=== PATIENT | male | born 1980 | race Caucasian/White ===

== ENCOUNTER → 2021-06-09 11:10 | Outpatient (REF) | payer OTHER, SELFPAY | LOC: ANHLAB 11:10 | PROVIDERS: PCP Family Medicine; Visit Provider Nurse Practitioner | DX: L72.0 Epidermal cyst (principal) | CPT/HCPCS: 88304 ==

== ENCOUNTER 2022-06-07 09:53 | Outpatient (CLI) | payer OTHER, SELFPAY ==
[2022-06-07 19:58] LABS: Alanine Aminotransferase 38 U/L (6-50); Albumin Level 4.5 g/dL (3.5-5.1); Alkaline Phosphatase 67 U/L (38-126); Anion Gap 6 mmol/L (8-16); Aspartate Amino Transferase 52 U/L (17-59); Bilirubin,Total 1.1 mg/dL (0.2-1.3); Blood Urea Nitrogen 16 mg/dL (9-20); Carbon Dioxide 28 mmol/L (22-30); Chloride 103 mmol/L (98-107); Cholesterol 198 mg/dL (0-200); Estimated Glomerular Filt Rate > 60; Glucose 109 mg/dL (65-110); HDL Direct 40 mg/dL; Potassium 4.2 mmol/L (3.4-5.0); Sodium 137 mmol/L (137-145); Triglycerides 192 mg/dL (<150)
[2022-06-07 20:08] LABS: Basophils Absolute Auto 0.1 K/mm3 (0.0-0.1); Basophils Percent Auto 0.9 % (0.2-1.2); Eosinophils Absolute Auto 0.1 K/mm3 (0-0.3); Eosinophils Percent Auto 1.8 % (0-4.4); Hematocrit 44.1 % (42.0-52.0); Hemoglobin 15.2 g/dL (14.0-18.0); Immature Granulocyte Absolute 0.01 K/mm3 (0.00-0.031); Immature Granulocyte Percent A 0.2 % (0-0.5); Lymphocytes Absolute Auto 2.31 K/mm3 (0.9-3.2); Lymphocytes Percent Auto 41.1 % (18.3-44.2); Mean Corpuscular HGB Conc 34.5 g/dl (32-36); Mean Corpuscular Hemoglobin 29.3 pg (26-34); Mean Corpuscular Volume 85.1 fl (80-100); Mean Platelet Volume 9.2 fl (7.4-10.4); Monocytes Absolute Auto 0.4 K/mm3 (0.1-0.6); Monocytes Percent Auto 7.8 % (2.6-8.5); Neutrophils Absolute Auto 2.7 K/mm3 (1.3-6.7); Neutrophils Percent Auto 48.2 % (45.5-73.1); Platelet Count Result 248 k/mm3 (150-375); Red Blood Count 5.18 M/mm3 (4.6-6.20); White Blood Count 5.6 K/mm3 (4.5-10.0)
[2022-06-07 20:09] LABS: LDL Cholesterol Direct 120 mg/dL
[2022-06-07 20:53] LABS: Hemoglobin A1C 5.5 % (<5.7)
== END 2022-06-07 09:54 | disposition home or self-care (01) ==
LOC: ANHGOSHLAB 09:54
PROVIDERS: PCP Family Medicine; Visit Provider Family Medicine
DX: E78.5 Hyperlipidemia, unspecified (principal); Z13.228 Encounter for screening for other metabolic disorders; R73.03 Prediabetes; R53.83 Other fatigue; R06.09 Other forms of dyspnea
CPT/HCPCS: 36415; 80053; 80061; 83036; 85025

== ENCOUNTER 2022-09-12 07:57 | Outpatient (CLI) | payer OTHER, SELFPAY ==
--- NOTE | 2022-10-04 19:01 | WPDSLEEPSTUD ---
Sleep Study Date of Study: 09/12/22 Ordering Provider: Guy Vicente DO Interpreting Physician: Helen Larose MD Sleep Study Type: Polysomnogram Height: 1.88 m Weight: 106.594 kg Body Mass Index: 30.2 Neck Circumference (inches): 19.75 [place]: 13 Reason for Sleep Study Hypersomnolence Sleep History Yuriy Quarles is a 41-year-old man with feelings of persistently being tired all day. This is been going on for years. He has a family history of sleep issues, both his mother and sister use CPAP. They suspect his older brother is narcoleptic. He reports having hypertension and depression as well as nasal allergies and acid reflux. He rarely awakens from sleep feeling short of breath. He occasionally awakens at night with heartburn, belching or coughing. He always snores loudly enough that others complain about it. He always has trouble sleeping if he has a cold. He rarely wakes up gasping for breath at night. He frequently has breathing problems at night observed by others. He occasionally sweats excessively at night. He occasionally notices his heart pounding or beating irregularly at night. Occasionally falls asleep during the day, rarely falls asleep involuntarily, never falls asleep while driving. He rarely has loss of muscle tone with strong emotion. He always has daytime difficulties due to being excessively sleepy. He has a sanitation labor. He rarely feels paralyzed on waking or falling asleep. He occasionally has vivid dreamlike scenes on waking or falling asleep. He rarely feels afraid to go to sleep. He rarely has nightmares. He rarely remembers his dreams. He frequently has racing thoughts. Frequently feels sad, depressed, and anxious. He frequently has muscular tension. He occasionally notices parts of his body jerking. He occasionally kicks at night. He occasionally has crawling and aching feelings in his legs. He occasionally has leg pain during the night. He rarely has morning jaw pain. He rarely grinds his teeth during sleep. He frequently is bothered by pain during the day. He rarely is awakened by pain at night. He frequently wakes up feeling stiff in the morning with sore achy muscles or pain in the neck and spine. He has fatigue, memory problems, concentration difficulties and depression. His normal bedtime is 10:00 p.m., sometimes falling asleep more quickly than other times. He always wakes at least once before his alarm goes off. When he wakes at night he goes to the bathroom. After this he repositioned and tries to return to sleep. He does not like to be out later than 6:00 p.m. because he is so tired and wants to be at home resting or possibly sleeping. He takes naps in the afternoon or evening. A short nap lasting 10 or 15 minutes might be refreshing. He is usually drowsy for 2 hours after waking. Habits: Never smoked tobacco. Caffeine 2 cups per day. Alcohol less than 1 average per day. No recreational substances. [facility] Past Medical History Medical History Acute nasopharyngitis Body mass index [BMI] 38.0-38.9, adult Encounter for screening for other metabolic disorders Excessive sweating Obesity (BMI 35.0-39.9 without comorbidity) Other and unspecified hyperlipidemia Screening, lipid Sebaceous cyst Family History Family History Father Malignant neoplasm of prostate Diabetes mellitus Hypertension Heart disease Mother Hypertension Diabetes mellitus Sibling Hypertension Grandparent Diabetes mellitus Grandparent Depression Anxiety Social History Social History Smoking status: Never smoker Second hand tobacco smoke exposure: No Alcohol intake: current Alcohol use details: 1 drink a month Substance use: never Lack of Transportation: No Lack of Food: Never True Current Housing: I
[2022-10-04 20:00] VITALS: BMI 30.2
== END 2022-09-13 05:28 | disposition home or self-care (01) ==
LOC: ANHCSM 07:58
PROVIDERS: PCP Family Medicine; Visit Provider Family Medicine
DX: R53.83 Other fatigue (principal); G47.33 Obstructive sleep apnea (adult) (pediatric)
CPT/HCPCS: 95810

== ENCOUNTER 2023-09-17 08:43 | Outpatient (CLI) | payer OTHER, SELFPAY ==
[2023-09-17 09:22] LABS: Alanine Aminotransferase 22 U/L (6-50); Albumin Level 4.9 g/dL (3.5-5.1); Alkaline Phosphatase 58 U/L (38-126); Anion Gap 9 mmol/L (4-12); Aspartate Amino Transferase 28 U/L (17-59); Bilirubin,Total 1.9 mg/dL (0.2-1.3); Blood Urea Nitrogen 19 mg/dL (9-20); Calcium 9.8 mg/dL (8.4-10.2); Carbon Dioxide 25 mmol/L (22-30); Chloride 107 mmol/L (98-107); Cholesterol 189 mg/dL (0-200); Estimated Glomerular Filt Rate > 60; Glucose 115 mg/dL (65-110); HDL Direct 42 mg/dL; Potassium 4.2 mmol/L (3.4-5.0); Sodium 141 mmol/L (137-145); Triglycerides 257 mg/dL (<150)
[2023-09-17 09:33] LABS: LDL Cholesterol Direct 112 mg/dL
== END 2023-09-17 08:44 | disposition home or self-care (01) ==
LOC: ANHLAB 08:44
PROVIDERS: PCP Family Medicine; Visit Provider Family Medicine
DX: E78.5 Hyperlipidemia, unspecified (principal); Z13.228 Encounter for screening for other metabolic disorders
CPT/HCPCS: 36415; 80053; 80061

== ENCOUNTER 2024-09-03 07:02 | Emergency (ER) | payer OTHER, SELFPAY ==
--- NOTE | ~2024-09-03 | CT_ITS ---
CLINICAL INDICATION: Left flank pain COMPARISON: None. TECHNIQUE: Multiple contiguous axial images of the abdomen and pelvis were performed without the admi nistration of intravenous contrast The dose-length product (DLP) was 1621.71 mGy-cm. Automated exposure control and iterative reconstruction technique were employed. FINDINGS/OBSERVATIONS: Visualized lower thorax: The bilateral lung bases are clear. The heart is of normal size, without pericardial effusion. Small hiatal hernia is present. Liver: The liver demonstrates homogeneous attenuation and is enlarged measuring 24 cm in longitudinal dimens ion. Gallbladder and biliary system: The gallbladder is only minimally distended, and otherwise unremarkable. Pancreas: Limited evaluation of the pancreas secondary to the lack of intravenous contrast. Spleen: Punctate calcifications identified within the splenic parenchyma, suggesting prior granulomat ous disease. The remainder of the spleen demonstrates an otherwise homogeneous attenuation and is borderline enlar ged measuring 12 cm in longitudinal dimension. Kidneys: Left-sided hydroureteronephrosis extending to the proximal left ureter where a 5 mm calculus is ident ified. Significant surrounding inflammatory change is present with global enlargement of the left kid anahi. Adrenal glands: Unremarkable. Gastrointestinal tract: Colonic diverticulosis without surrounding inflammatory change. Fecal stasis within the colon. Appendix: The air-filled appendix is of normal caliber (axial series, images 154 through 166) Vasculature: Unremarkable. Lymph nodes: No pathologically enlarged or morphologically suspicious lymph nodes within the retroperitoneum or at the root of the mesentery. Pelvic structures: The bladder is only minimally distended, and otherwise unremarkable. The prostate gland is not enlarged. Body wall and musculoskeletal: Small fat-containing umbilical hernia. No significant degenerative disease within the lumbosacral spine. IMPRESSION: Left-sided hydroureteronephrosis secondary to a 5 mm calculus proximal left ureter. Hepatomegaly. Borderline splenomegaly. Reviewed, dictated and finalized at location A. IMPRESSION: Left-sided hydroureteronephrosis secondary to a 5 mm calculus proximal left ure ter. Hepatomegaly. Borderline splenomegaly.
[2024-09-03 07:02] VITALS: BP 119/73; PULSE 88; RESP 16; TEMP 36.4; O2SAT 94
--- OUTSIDE RECORDS SUMMARY | 2024-09-03 07:04 | XMS_ITS | Clinical Summary ---
Author Organization [facility] [address] [facility] lto Address [address] [place] [address] Care Team Providers Care Photovoltaic Subcontractor Name Role Phone EricGuy carter Primary Care Provider [phone] Allergies No known active allergies Medications atorvastatin (LIPITOR) 10 mg tablet 02/04/2023 Active omeprazole (PriLOSEC) 20 mg capsule Take 1 capsule (20 mg total) by mouth daily 01/31/2023 Active px-7-qth-epa-fi sh oil-vit D3 300-1,000-1,000 mg-mg-unit capsule Take 1,000 mg by mouth 2 (two) times a day Active Active Problems No known active problems Social History Tobacco Use Types Packs/Day Years Used Date Smoking Tobacco: Never Assessed Sex and Gender Information Value Date Recorded Sex Assigned at Not on file Legal Sex Male 8:07 AM CDT Gender Identity Not on file Sexual Orientation Not on file Obstetrics History Last Filed Vital Signs Vital Sign Reading Time Taken Comments Blood Pressure 142/82 02/08/2023 8:30 AM CDT Pulse 73 02/08/2023 8:30 AM CDT Temperature 36.5 C (97.7 F) 02/08/2023 8:30 AM CDT Respiratory Rate 18 02/08/2023 8:30 AM CDT Oxygen Saturation 98% 02/08/2023 8:30 AM CDT Inhaled Oxygen Concentration - - Weight 144.2 kg (317 lb 12.8 oz) 02/08/2023 8:30 AM CDT Height 188 cm (6' 2 ) 02/08/2023 8:30 AM CDT Body Mass Index 40.8 02/08/2023 8:30 AM CDT Plan of Treatment Health Maintenance Due Date Last Done Comments Depression Screening 1981 Hepatitis C Screening 1981 DTaP/Tdap/Td Vaccine (1 - Tdap) 1992 Varicella Vaccines (1 of 2 - 13+ 2-dose series) 1994 Hepatitis B Screening 11/04/1999 Regular Well Visit/Exam 18-64 11/04/1999 Covid-19 Vaccine (4 - 2023-2 5 season) 2024 12/08/2021, 10/03/2020, 09/10/2020 Influenza Vaccine (#1) 2024 06/07/2022 HPV Vaccines Aged Out No longer eligi ble based on patient's age to complete this topic Pneumococcal vaccine <65 Aged Out No longer eligible based on patient's age to complete this topic Insurance [facility] [id number] Care Teams Photovoltaic Subcontractor Relationship Specialty Start Date End Date Guy Vicente DO [address] [place] [address] PCP - General Family Medicine 02/08/23
--- OUTSIDE RECORDS SUMMARY | 2024-09-03 07:04 | XMS_ITS | Referral Summary ---
Author Organization [facility] 163 [facility] lto Address [address] [address] Care Team Providers Care Visual Education Teacher Name Role Phone EricGuy carter Primary Care Provider [phone] Allergies No known active allergies Medications atorvastatin (LIPITOR) 10 mg tablet 02/04/2023 Active omeprazole (PriLOSEC) 20 mg capsule Take 1 capsule (20 mg total) by mouth daily 01/31/2023 Active lh-7-yom-epa-fi sh oil-vit D3 300-1,000-1,000 mg-mg-unit capsule Take [...] on file Sexual Orientation Not on file Last Filed Vital Signs Vital Sign Reading [...] 02/08/2023 8:30 AM CDT Plan of Treatment Not on file Insurance [facility] [id number] Care Teams Visual Education Teacher Relationship Specialty Start Date End Date Guy Vicente DO [address] [place] [address] [place] [id number] PCP - General Family Medicine 02/08/23
[2024-09-03 07:29] LABS: Basophils Percent Auto 0.2 % (0.2-1.2); Eosinophils Percent Auto 0.1 % (0-4.4); Hematocrit 44.9 % (42.0-52.0); Hemoglobin 15.7 g/dL (14.0-18.0); Immature Granulocyte Absolute 0.05 K/mm3 (0.00-0.031); Immature Granulocyte Percent A 0.4 % (0-0.5); Lymphocytes Absolute Auto 1.73 K/mm3 (0.9-3.2); Lymphocytes Percent Auto 13.4 % (18.3-44.2); Mean Corpuscular Hemoglobin 29.1 pg (26-34); Mean Corpuscular Volume 83.3 fl (80-100); Mean Platelet Volume 8.7 fl (7.4-10.4); Monocytes Absolute Auto 1.1 K/mm3 (0.1-0.6); Monocytes Percent Auto 8.3 % (2.6-8.5); Neutrophils Percent Auto 77.6 % (45.5-73.1); Platelet Count Result 213 k/mm3 (150-375); Red Blood Count 5.39 M/mm3 (4.6-6.20); Red Cell Distribution Width 12.8 % (11.5-14.5); White Blood Count 12.9 K/mm3 (4.5-10.0)
[2024-09-03 07:39] LABS: Add Urine Microscopic? YES; Appearance Urine Clear (Clear); Bacteria Urine None Seen /hpf; Bilirubin Urine Negative (Negative); Blood Urine Trace (Negative); Color Urine Yellow (Yellow); Glucose Urine UA Negative (Negative); Ketones Urine Negative (Negative); Leukocyte Esterase Ur Negative LEU/UL (Negative); Nitrate Urine Negative (Negative); Non Pathogenic Casts 0-2; Protein Urine Negative (Negative); RBC Urine 0-2 /hpf (0-2); Squamous Epithelial Cell Urine None Seen /hpf (Few); Urobilinogen Urine 0.2 mg/dL (<2.0); WBC Urine 0-5 /hpf (0-3); pH Urine 5.5 (5.0-9.0)
[2024-09-03 07:45] LABS: Alanine Aminotransferase 32 U/L (6-50); Albumin Level 4.9 g/dL (3.5-5.1); Alkaline Phosphatase 61 U/L (38-126); Anion Gap 11 mmol/L (4-12); Aspartate Amino Transferase 34 U/L (17-59); Bilirubin,Total 3.1 mg/dL (0.2-1.3); Blood Urea Nitrogen 19 mg/dL (9-20); Calcium 9.4 mg/dL (8.4-10.2); Carbon Dioxide 28 mmol/L (22-30); Chloride 99 mmol/L (98-107); Estimated CRCL calculation 86 ml/min; Estimated Glomerular Filt Rate 49; Glucose 126 mg/dL (65-110); Lipase 37 U/L (23-300); Potassium 3.9 mmol/L (3.4-5.0); Sodium 138 mmol/L (137-145)
[2024-09-03] MEDS: ONDANSETRON INJ 4 MG/2 ML VIAL IV PUSH (08:16)
[2024-09-03] MEDS: SODIUM CHLORIDE 0.9% IV 1,000 ML 999 ML IV CONT (08:17)
[2024-09-03 08:42] VITALS: BP 132/84; PULSE 84; RESP 18; O2SAT 96
[2024-09-03 09:26] VITALS: BP 134/77; PULSE 79; RESP 17; O2SAT 99
--- NOTE | 2024-09-03 09:49 | ED_ITS ---
HPI - General Adult General Chief complaint: Abdominal Pain Stated complaint: left flank pain Time Seen by Provider: 09/03/24 07:46 History of Present Illness HPI narrative: This is a 43-year-old male presenting ED chief complaint left flank pain. Symptoms started yesterday. They come and go ranging from severe to no pain at all. Related Data Allergies Allergy/AdvReac Type Severity Reaction Status Date / Time No Known Allergies Allergy Verified 09/03/24 07:11 [facility] Past Medical History Medical History Acute nasopharyngitis Body mass index [BMI] 38.0-38.9, adult Encounter for screening for other metabolic disorders Excessive sweating Obesity (BMI 35.0-39.9 without comorbidity) Other and unspecified hyperlipidemia Screening, lipid Sebaceous cyst Family History Family History Father Malignant neoplasm of prostate Diabetes mellitus Hypertension Heart disease Mother Hypertension Diabetes mellitus Sibling Hypertension Grandparent Diabetes mellitus Grandparent Depression Anxiety Social History Social History Smoking status: Never smoker Second hand tobacco smoke exposure: No Alcohol intake: current Alcohol use details: 1 drink a month Substance use: never Lack of Transportation: No Lack of Food: Never True Current Housing: I Have Housing Concerned About Future Housing: No Difficulty Paying Gas/Electric Bills: No Difficulty Paying for Meds: No Currently Unemployed: No Education: Associate Degree Difficulty w/ Childcare or Family Care: No Living arrangements: with family Occupation/Education: occupation 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 Head: atraumatic. EYES: EOMI, NOSE: Atraumatic NECK: Trachea midline RESPIRATORY: No increased rate of breathing clear to auscultation CARDIOVASCULAR: RRR, no peripheral edema ABDOMINAL: Non-distended soft nontender rebound no CVA tenderness MUSCULOSKELETAl: No obvious deformities NEURO: Alert. Moving 4/4 extremities SKIN:: Warm, dry. Normal color PSYCHIATRIC: Normal affect Course Vital Signs Vital signs: Vital Signs Temperature 97.6 F 09/03/24 07:02 Pulse Rate 88 09/03/24 07:02 Respiratory Rate 16 09/03/24 07:02 Blood Pressure 119/73 09/03/24 07:02 Pulse Oximetry 94 09/03/24 07:02 Oxygen Delivery Room Air 09/03/24 07:02 Temperature 97.6 F 09/03/24 07:02 Pulse Rate 79 09/03/24 09:26 Respiratory Rate 17 09/03/24 09:26 Blood Pressure 134/77 09/03/24 09:26 Pulse Oximetry 99 09/03/24 09:26 Oxygen Delivery Room Air 09/03/24 07:02 Medical Decision Making MDM Narrative Medical decision making narrative: -Course: 43-year-old male presenting with left-sided flank pain nausea and vomiting. Found have a 5 mm stone. No evidence of infection. Patient's pain was actually controlled without pain medication in the ED. Be discharged on appropriate medications and given Urology follow-up. -DDX includes but is not limited to: Kidney stone, gastroenteritis, colitis, muscle strain Vital Signs Vital Signs: Vital Signs Temperature 97.6 F 09/03/24 07:02 Pulse Rate 88 09/03/24 07:02 Respiratory Rate 16 09/03/24 07:02 Blood Pressure 119/73 09/03/24 07:02 Pulse Oximetry 94 09/03/24 07:02 Oxygen Delivery Room Air 09/03/24 07:02 Temperature 97.6 F 09/03/24 07:02 Pulse Rate 79 09/03/24 09:26 Respiratory Rate 17 09/03/24 09:26 Blood Pressure 134/77 09/03/24 09:26 Pulse Oximetry 99 09/03/24 09:26 Oxygen Delivery Room Air 09/03/24 07:02 Lab Data 09/03/24 07:19 09/03/24 07:19 Labs: Lab Results 09/03/24 Range/Units 07:19 WBC 12.9 H (4.5-10.0) K/mm3 RBC 5.39 (4.6-6.20) M/mm3 Hgb 15.7 (14.0-18.0) g/dL Hct 44.9 (42.0-52.0) % MCV 83.3 (80-100) fl MCH 29.1 (26-34) pg MCHC 35.0 (32-36) g/dl RDW 12.8 (11.5-14.5) % Plt Count 213 (150-375) k/mm3 MPV 8.7 (7.4-10.4) fl Immature Gran % (Auto) 0.4 (0-0.5) % Neut % (Auto) 77.6 H (45.5-73.1) % Lymph % (Auto) 13.4 L (18.3-44.2) % [place] % (Auto) 8.3 (2.6-8.5) % Eos % (Auto) 0.1 (0-4.4) % Baso % (Auto) 0.2 (0.2-1.2) % Lymph # (Auto) 1.73 (0.9-3.2) K/mm3 [place] # (Auto) 1.1 H (0.1-0.6) K/mm3 Eos # (Auto) 0.0 (0-0.3) K/mm3 Baso # (Auto) 0.0 (0.0-0.1) K/mm3 Abs Immat Gran (auto) 0.05 H (0.00-0.031) K/mm3 Absolute Neuts (auto) 10.0 H (1.3-6.7) K/mm3 Absolute Nucleated RBC 0.000 (0.0-0.012) K/mm3 Nucleated RBC % 0.0 (0.0-0.2) % Sodium 138 (137-145) mmol/L Potassium 3.9 (3.4-5.0) mmol/L Chloride 99 (98-107) mmol/L Carbon Dioxide 28 (22-30) mmol/L Anion Gap 11 (4-12) mmol/L BUN 19 (9-20) mg/dL Creatinine 1.57 H (0.7-1.3) mg/dL Estim Creat Clear Calc 86 ml/min Estimated GFR 49 L (59 - ) Glucose 126 H (65-110) mg/dL Calcium 9.4 (8.4-10.2) mg/dL Total Bilirubin 3.1 H (0.2-1.3) mg/dL AST 34 (17-59) U/L ALT 32 (6-50) U/L Alkaline Phosphatase 61 (38-126) U/L Total Protein 8.0 (6.3-8.2) g/dL Albumin 4.9 (3.5-5.1) g/dL Lipase 37 (23-300) U/L Urine Color Yellow (Yellow) Urine Appearance Clear (Clear) Urine pH 5.5 (5.0-9.0) Ur Specific [place] 1.010 (1.001-1.035) Urine Protein Negative (Negative) mg/dL Urine Glucose (UA) Negative (Negative) mg/dL Urine Ketones Negative (Negative) mg/dL Ur Blood (Man) Trace (Negative) Urine Nitrate Negative (Negative) Urine Bilirubin Negative (Negative) Urine Urobilinogen 0.2 (<2.0) mg/dL Leukocyte Esterase Rfl Negative (Negative) LACEY/UL Urine RBC 0-2 (0-2) /hpf Urine WBC 0-5 (0-3) /hpf Ur Squamous Epith Cells None seen (Few) /hpf Urine Bacteria None seen /hpf Urine Casts 0-2 Discharge Plan Discharge Clinical Impression: Kidney stone Patient Disposition: Home Condition: Stable Instructions: Antibiotic Form, Kidney Stones (ED) Additional Instructions: You were seen in the emergency department for a kidney stone. Please use Motrin/Tylenol for pain. Use oxycodone for breakthrough pain. Use Flomax to help pass the stone. Use Zofran for nausea. Please follow-up with your Urologist for further management. Please return if you develop severe pain, fevers or intractable nausea and vomiting. Patient Language: Upper Sorbian Prescriptions: New acetaminophen 500 mg tablet 1,000 mg PO TID PRN (Reason: elisa) 7 Days Qty: 42 0RF ibuprofen 800 mg tablet 800 mg PO TID PRN (Reason: pain) 7 Days Qty: 21 0RF tamsulosin [Flomax] 0.4 mg capsule 0.4 mg PO DAILY Qty: 30 0RF ondansetron 4 mg tablet,disintegrating 4 mg PO Q8H PRN (Reason: nausea and vomiting) Qty: 30 0RF oxycodone 5 mg tablet 5 mg PO Q4H PRN (Reason: pain) Qty: 14 0RF No Action omega-3 fatty acids [Fish Oil Concentrate] 1,000 mg capsule 1,000 mg PO BID Qty: 60 3RF (DME) AutoPAP See Rx Instructions .Route .MEDSUPPLY Qty: 1 0RF Rx Instructions: pressures between 5 cm and 16 cm using a [employer] AirSense 11 with a comfortable mask along with tubing, filters and reservoir atorvastatin 10 mg tablet 10 mg PO DAILY Qty: 90 1RF omeprazole 20 mg capsule,delayed release(DR/EC) 20 mg PO DAILY Qty: 30 5RF Wegovy 0.5 mg/0.5 mL pen injector 0.5 mg subcut WEEKLY Qty: 2 1RF Follow-up/Referrals: Bienvenido Church MD [Physician] - 1 Week (kidney stone ) Yousuf Treviño APRN [Primary Care Provider] -
[2024-09-03 10:16] VITALS: BP 129/84; PULSE 85; RESP 18; TEMP 36.6; O2SAT 98
[2024-09-03] MEDS: ACETAMINOPHEN 500 MG TABLET 1000 MG PO (10:16)
[2024-09-03] MEDS: KETOROLAC 15 MG/ML VIAL (*BKC) IV PUSH (10:16)
== END 2024-09-03 10:23 | disposition home or self-care (01) ==
PROVIDERS: Emergency Provider Emergency Medicine; PCP Student in an Organized Health Care Education/Training Program
DX: N13.2 Hydronephrosis with renal and ureteral calculous obstruction (principal); E78.5 Hyperlipidemia, unspecified; E66.9 Obesity, unspecified; Z68.41 Body mass index [BMI] 40.0-44.9, adult; R16.0 Hepatomegaly, not elsewhere classified
CPT/HCPCS: 36415; 74176; 80053; 81001; 83690; 85025; 96361; 96374; 96375; 99284; A9270; J1885; J2405; J7030

== ENCOUNTER 2024-09-25 09:17 | Outpatient (CLI) | payer OTHER, SELFPAY ==
--- NOTE | ~2024-09-25 | XR_ITS ---
XR abdomen/kub 1V Ordering provider: YVONNE Wilson History: . L ureteral stone . Comparison: None. FINDINGS: BOWEL: Nonobstructive bowel gas pattern. ORGANOMEGALY: None. SIGNIFICANT PATHOLOGIC CALCIFICATIONS: None. OTHER: No free air is seen under the diaphragm. IMPRESSION: NO ACUTE ABDOMINAL FINDINGS. Reviewed, dictated and finalized at location A.
--- NOTE | ~2024-09-25 | CT_ITS ---
Non-contrast CT scan of the Abdomen and Pelvis Clinical indication: Left ureteral stone Technique: 2.5 mm axial scans were obtained through the abdomen and pelvis without intravenous or or al contrast. Dose reduction technique was used on this scan by utilizing automated exposure control a nd iterative reconstruction technique. The dose-length product (DLP) was 1143.27 mGy-cm. COMPARISON: 09/03/2024 Findings: Images through the lung bases reveal no abnormalities. 4 mm nonobstructing left lower pole renal stone present. No left ureteral stone or left hydronephrosi s. No right renal, ureteral stone. No right hydronephrosis. The liver, spleen, pancreas, gallbladder, and adrenals appear normal. There is no aortic aneurysm. There is no evidence of bowel obstruction. Images through the pelvis were performed. There is no evidence of ascites or lymphadenopathy. Urinary bladder unremarkable. No pelvic mass seen. Impression: 4 mm nonobstructing left lower pole renal stone. No ureteral stone or hydronephrosis on either side. Reviewed, dictated and finalized at [facility]. Impression: 4 mm nonobstructing left lower pole renal stone. No ureteral stone or hydronephrosis on either side.
== END 2024-09-25 09:18 | disposition home or self-care (01) ==
LOC: MICIMG 09:18
PROVIDERS: PCP Student in an Organized Health Care Education/Training Program; Visit Provider Nurse Practitioner
DX: N20.0 Calculus of kidney (principal)
CPT/HCPCS: 74018; 74176

== ENCOUNTER 2024-09-27 11:20 | Outpatient (CLI) | payer OTHER, SELFPAY ==
--- OUTSIDE RECORDS SUMMARY | 2024-09-27 11:24 | XMS_ITS | Clinical Summary ---
Author Organization [facility] [address] [facility] lto Address [address] [place] [address] Care Team Providers Care Park Recreation Manager Name Role Phone EricGuy carter Primary Care Provider [phone] Allergies No known active allergies Medications atorvastatin (LIPITOR) 10 mg tablet 02/04/2023 Active omeprazole (PriLOSEC) 20 mg capsule Take 1 capsule (20 mg total) by mouth daily 01/31/2023 Active ms-0-wbd-epa-fi sh oil-vit D3 300-1,000-1,000 mg-mg-unit capsule Take [...] season) 2024 12/08/2021, 10/03/2020, 09/10/2020 Influenza Vaccine (Season Ended) 2025 06/07/2022 HPV Vaccines Aged Out No longer eligi ble based on patient's age to complete this topic Pneumococcal vaccine <65 Aged Out No longer eligible based on patient's age to complete this topic Insurance [facility] [id number] Care Teams Park Recreation Manager Relationship Specialty Start Date End Date Guy Vicente DO [address] [place] [address] PCP - General Family Medicine 02/08/23
--- OUTSIDE RECORDS SUMMARY | 2024-09-27 11:24 | XMS_ITS | Referral Summary ---
Author Organization [facility] 163 [facility] lto Address [address] [place] [address] Care Team Providers Care Case Manager Name Role Phone EricGuy carter Primary Care Provider [phone] Allergies No known active allergies Medications atorvastatin (LIPITOR) 10 mg tablet 02/04/2023 Active omeprazole (PriLOSEC) 20 mg capsule Take 1 capsule (20 mg total) by mouth daily 01/31/2023 Active ix-3-juj-epa-fi sh oil-vit D3 300-1,000-1,000 mg-mg-unit capsule Take [...] Plan of Treatment Not on file Insurance [facility] [id number] Care Teams Case Manager Relationship Specialty Start Date End Date Guy Vicente DO [address] [place] [address] [place] [address] PCP - General Family Medicine 02/08/23
[2024-09-27 20:20] LABS: Cholesterol 198 mg/dL (0-200); HDL Direct 42 mg/dL; Triglycerides 236 mg/dL (<150)
[2024-09-27 20:31] LABS: LDL Cholesterol Direct 105 mg/dL
[2024-09-27 21:12] LABS: Hemoglobin A1C 5.4 % (<5.7)
== END 2024-09-27 11:21 | disposition home or self-care (01) ==
LOC: ANHGOSHLAB 11:21
PROVIDERS: PCP Student in an Organized Health Care Education/Training Program; Visit Provider Student in an Organized Health Care Education/Training Program
DX: E78.5 Hyperlipidemia, unspecified (principal); R73.03 Prediabetes
CPT/HCPCS: 36415; 80061; 83036

== ENCOUNTER 2025-04-15 09:20 | Outpatient (CLI) | payer OTHER, SELFPAY ==
--- OUTSIDE RECORDS SUMMARY | 2025-04-15 10:21 | XMS_ITS | Clinical Summary ---
Author Organization [facility] 163 [facility] lto Address [address] [place] [address] Care Team Providers Care Manager Pacu Name Role Phone EricGuy carter Primary Care Provider [phone] Allergies No known active allergies Medications atorvastatin (LIPITOR) 10 mg tablet 02/04/2023 Active omeprazole (PriLOSEC) 20 mg capsule Take 1 capsule (20 mg total) by mouth daily 01/31/2023 Active im-9-wti-epa-fi sh oil-vit D3 300-1,000-1,000 mg-mg-unit capsule Take [...] 8:30 AM CDT Height 188 cm (6' 2) 02/08/2023 8:30 AM CDT Body Mass Index 40.8 02/08/2023 8:30 AM CDT Plan of Treatment Health Maintenance Due Date Last Done Comments Depression Screening 1981 Hepatitis C Screening 1981 DTaP/Tdap/Td Vaccine (1 - Tdap) 1992 Varicella Vaccines (1 of 2 - 13+ 2-dose series) 1994 Hepatitis B Screening 11/04/1999 Regular Well Visit/Exam 18-64 11/04/1999 HPV Vaccines (1 - 3-dose SCD M series) 2008 Covid-19 Vaccine (4 - 2024-2 6 season) 2025 12/08/2021, 10/03/2020, 09/10/2020 Influenza Vaccine (#1) 2025 06/07/2022 Pneumococcal vaccine <65 Aged Out No longer eligible based on patient's age to complete this topic Insurance [facility] [id number] Care Teams Manager Pacu Relationship Specialty Start Date End Date Guy Vicente DO [address] [place] [address] PCP - General Family Medicine 02/08/23
[2025-04-15 13:27] LABS: Alanine Aminotransferase 24 U/L (6-50); Albumin Level 4.6 g/dL (3.5-5.1); Alkaline Phosphatase 58 U/L (38-126); Anion Gap 7 mmol/L (4-12); Aspartate Amino Transferase 55 U/L (17-59); Bilirubin,Total 1.3 mg/dL (0.2-1.3); Blood Urea Nitrogen 18 mg/dL (9-20); Calcium 9.3 mg/dL (8.4-10.2); Carbon Dioxide 27 mmol/L (22-30); Chloride 105 mmol/L (98-107); Cholesterol 167 mg/dL (0-200); Estimated Glomerular Filt Rate > 60; Glucose 82 mg/dL (65-110); HDL Direct 36 mg/dL; Potassium 4.1 mmol/L (3.4-5.0); Sodium 139 mmol/L (137-145); Total Protein 7.7 g/dL (6.3-8.2); Triglycerides 195 mg/dL (<150)
[2025-04-15 13:43] LABS: MALB Creatinine Ratio 7.2 mg/g (0-30)
[2025-04-15 14:03] LABS: Thyroid Stimulating Hormone 1.420 uIU/mL (0.465-4.680)
[2025-04-15 15:16] LABS: Hemoglobin A1C 5.4 % (<5.7)
== END 2025-04-15 09:21 | disposition home or self-care (01) ==
LOC: ANHGOSHLAB 09:21
PROVIDERS: PCP Student in an Organized Health Care Education/Training Program; Visit Provider Student in an Organized Health Care Education/Training Program
DX: E78.2 Mixed hyperlipidemia (principal); R73.03 Prediabetes; E66.813 Obesity, class 3; Z68.41 Body mass index [BMI] 40.0-44.9, adult
CPT/HCPCS: 36415; 80053; 80061; 82043; 83036; 84443